=== PATIENT | female | born 1990 | race Caucasian/White ===

== ENCOUNTER 2024-07-05 15:56 | Outpatient (CLI) | payer OTHER, SELFPAY | END 2024-07-05 15:57 | disposition home or self-care (01) | LOC: FRMREF 15:57 | PROVIDERS: PCP Family Medicine; Visit Provider Family Medicine | DX: J02.0 Streptococcal pharyngitis (principal); R22.1 Localized swelling, mass and lump, neck | CPT/HCPCS: 84443 ==

== ENCOUNTER 2025-07-18 10:43 | Outpatient (CLI) | payer OTHER, MEDICAID, SELFPAY ==
--- NOTE | 2025-07-18 11:00 | CRLHL7_ITS ---
For Patients: As a result of the Century Cures Act, medical imaging exams and procedure reports are released immediately into your electronic medical record. You may view this report before your referring provider. If you have questions, please contact your health care provider. INDICATION: Chronic sinusitis. TECHNIQUE: Routine CT images through the paranasal sinuses were obtained without contrast. Multiplanar reconstructions. FINDINGS: Frontal: The hypoplastic frontal air cells are clear. Ethmoid: Minimal mucosal thickening in a few anterior ethmoid air cells but the majority are clear. Sphenoid: The sphenoid air cells are clear scanned with little recesses patent. Maxillary: Small subcentimeter retention cysts the base of the left maxillary antrum 1-2 mm mucosal thickening in the right maxillary antrum. The ostiomeatal units are patent bilaterally. Nasal fossa: There is a prominent marilin bullosa of the right middle nasal turbinate. There is associated convex left curvature of the nasal septum. The posterior nasal fossa unremarkable. There is prominence of the nasopharyngeal lymphoid tissues. Mastoid air cells are clear bilaterally. There is asymmetric prominent right jugular bulb with is most likely a normal variant. IMPRESSION: 1. Small retention cysts and mild mucosal thickening in the maxillary sinuses. 2. Patent bilateral ostiomeatal units. 3. A marilin bullosa of the right middle nasal turbinate and associated convex left nasal septal curvature. 4. Adenoidal enlargement. Please note that all CT scans at this facility use dose modulation, iterative reconstruction, and/or weight-based dosing when appropriate to reduce radiation dose to as low as reasonably achievable. Dictated by Ky Bonds MD @ 07/19/2025 8:38:17 AM (Electronically Signed)
== END 2025-07-18 10:44 | disposition home or self-care (01) ==
LOC: CT 10:43
PROVIDERS: PCP Family Medicine; Visit Provider Physician Assistant
DX: J32.9 Chronic sinusitis, unspecified (principal); J32.0 Chronic maxillary sinusitis; J34.2 Deviated nasal septum; J35.2 Hypertrophy of adenoids
CPT/HCPCS: 70486

== ENCOUNTER 2025-08-27 15:18 | Outpatient (CLI) | payer OTHER, MEDICAID, SELFPAY | END 2025-08-27 15:19 | disposition home or self-care (01) | PROVIDERS: PCP Family Medicine; Visit Provider Family Medicine | DX: Z00.00 Encounter for general adult medical examination without abnormal findings (principal); E28.2 Polycystic ovarian syndrome; R10.13 Epigastric pain; Z13.6 Encounter for screening for cardiovascular disorders; Z11.59 Encounter for screening for other viral diseases | CPT/HCPCS: 80053; 80061; 82607; 83690; 86803 ==